=== PATIENT | male | born 1995 | race Caucasian/White ===

== ENCOUNTER 2021-10-21 14:36 | Emergency (ER) | payer BC ==
[~2021-10-21] VITALS: Ht 180.3 cm; Wt 79.4 kg
[~2021-10-21 14:36] MED LIST: LEVAQUIN500 MG PO; TYLENOL WITH C1 EACH PO
[2021-10-21 15:51] VITALS: BP 105/86
== END 2021-10-21 15:59 | disposition home or self-care (01) ==
LOC: ER 14:45
DX: S60.392A Other superficial injuries of left thumb, initial encounter (principal); W22.09XA Striking against other stationary object, initial encounter; Y93.89 Activity, other specified; Y92.013 Bedroom of single-family (private) house as the place of occurrence of the external cause
CPT/HCPCS: 99282